=== PATIENT | female | born 1985 | race Caucasian/White ===

== ENCOUNTER 2018-05-07 06:23 | Day surgery (SDC) | payer BC ==
[~2018-05-07 06:23] MED LIST: Lactated Ringers 1,000 ML IV SCH; Sodium Chloride 0.9% 10 ML SDV IV PRN; Sodium Chloride 0.9% 10 ML Syringe FLUSH PRN; Sodium Chloride 0.9% 2.5 ML Syringe FLUSH PRN; ceFAZolin 2 GM in Premix Bag 1 BAG IV ONE
[2018-05-07] MEDS ORDERED: Propofol 200 MG/20 ML SDV ONE ×2 (07:21→09:55)
[2018-05-07] MEDS ORDERED: HYDROmorphone 2 MG/ML Syringe ONE (07:21)
[2018-05-07] MEDS ORDERED: fentaNYL 250 MCG/5 ML SDV ONE (07:21)
[2018-05-07] MEDS ORDERED: Midazolam 1 MG/ML 2 ML SDV ONE (07:21)
[2018-05-07] MEDS ORDERED: Scopolamine 1.5 MG Transdermal Patch TRDERM PRN (07:30)
--- NOTE | 2018-05-07 07:30 | PCM.PREANE ---
Preanesthetic Assessment - Anesthesia/Transfusion/Family Hx Anesthesia History: Prior Anesthesia Without Reaction Family History of Anesthesia Reaction: No Transfusion History: No Prior Transfusion(s) Intubation History: Unknown - Review of Systems General: No Symptoms Pulmonary: No Symptoms Cardiovascular: No Symptoms Gastrointestinal: Abdominal Pain Neurological: No Symptoms Other: Reports: None - Physical Assessment Height: 1.68 m Weight: 115.666 kg ASA Class: 2 Mental Status: Alert & Oriented x3 Airway Class: Mallampati = 2 Dentition: Reports: Normal Dentition Thyro-Mental Finger Breadths: 3 Mouth Opening Finger Breadths: 3 ROM/Head Extension: Full Lungs: Clear to Auscultation, Normal Respiratory Effort Cardiovascular: Regular Rate, Regular Rhythm - Lab Values: Laboratory Last Values Urine HCG, Qual NEGATIVE (NEGATIVE) 05/07/18 06:45 - Allergies Allergies/Adverse Reactions: Allergies Allergy/AdvReac Type Severity Reaction Status Date / Time almond Allergy tongue Verified 05/04/18 09:56 swells bee venom protein (honey bee) Allergy Swelling Verified 05/04/18 09:56 hydrocodone Allergy Nausea and Verified 05/07/18 07:25 Vomiting - Blood Blood Available: No - Anesthesia Plan Pre-Op Medication Ordered: None - Acknowledgements Anesthesia Type Planned: General Anesthesia Pt an Appropriate Candidate for the Planned Anesthesia: Yes Alternatives and Risks of Anesthesia Discussed w Pt/Guardian: Yes Pt/Guardian Understands and Agrees with Anesthesia Plan: Yes PreAnesthesia Questionnaire HEENT History: Reports: None, Other (See Below) Musculoskeletal History: Reports: Fracture, Other (See Below) Other Musculoskeletal History: hx fx lower back which causes lower back pain at times Neurological History: Reports: Migraines Endocrine/Metabolic History: Reports: Obesity/BMI 30+ (BMI 41.2) - Past Surgical History Head Surgeries/Procedures: Reports: None HEENT Surgical History: Reports: Oral Surgery, Tonsillectomy Other HEENT Surgeries/Procedures: wisdom teeth extraction - SUBSTANCE USE Smoking Status *Q: Never Smoker Recreational Drug Use History: No - HOME MEDS Home Medications: Home Meds Amitriptyline HCl 75 mg PO BEDTIME 04/02/18 [History] - CURRENT (IN HOUSE) MEDS Current Meds: Current Medications Lactated Ringer's (Ringers, Lactated) 1,000 mls @ 125 mls/hr IV ASDIRECTED BRITT Sodium Chloride (Saline Flush) 10 ml FLUSH ASDIRECTED PRN PRN Reason: Keep Vein Open Sodium Chloride (Saline Flush) 2.5 ml FLUSH ASDIRECTED PRN PRN Reason: Keep Vein Open Sodium Chloride (Normal Saline) 10 ml IV ASDIRECTED PRN PRN Reason: IV Use Discontinued Medications Fentanyl (Sublimaze) Confirm Administered Dose 250 mcg .ROUTE .STK-MED ONE Stop: 05/07/18 07:22 Hydromorphone HCl (Dilaudid) Confirm Administered Dose 2 mg .ROUTE .STK-MED ONE Stop: 05/07/18 07:22 Cefazolin Sodium/Dextrose 2 gm (/ Premix) 50 mls @ 100 mls/hr IV ONETIME ONE Stop: 04/06/18 11:33 Lactated Ringer's (Ringers, Lactated) 1,000 mls @ 125 mls/hr IV ASDIRECTED BRITT Cefazolin Sodium/Dextrose 2 gm (/ Premix) 50 mls @ 100 mls/hr IV ONETIME ONE Stop: 05/06/18 13:19 Midazolam HCl (Versed 1 Mg/Ml) Confirm Administered Dose 2 mg .ROUTE .STK-MED ONE Stop: 05/07/18 07:22 Propofol (Diprivan 20 Ml) Confirm Administered Dose 200 mg .ROUTE .STK-MED ONE Stop: 05/07/18 07:22 Sodium Chloride (Saline Flush) 10 ml FLUSH ASDIRECTED PRN PRN Reason: Keep Vein Open Sodium Chloride (Saline Flush) 2.5 ml FLUSH ASDIRECTED PRN PRN Reason: Keep Vein Open
[2018-05-07] MEDS ORDERED: Bupivacaine 0.5% 30 ML SDV ONE (07:40)
[2018-05-07] MEDS ORDERED: ePHEDrine 50 MG/ML SDV ONE (08:45)
[2018-05-07] MEDS ORDERED: Glycopyrrolate 0.2 MG/ML SDV ONE ×2 (08:45→09:40)
[2018-05-07] MEDS ORDERED: Neostigmine Methylsulfate 1 MG/ML 5 ML Syringe ONE (08:45)
[2018-05-07] MEDS ORDERED: Sodium Chloride 0.9% 20 ML ONE (08:46)
[2018-05-07] MEDS ORDERED: ceFAZolin/Dextrose,Iso-Osmotic 2 GM/50 ML Duplex Bag IV ONE (09:20)
[2018-05-07] MEDS ORDERED: Ondansetron 4 MG/2 ML SDV ONE (09:47)
[2018-05-07] MEDS ORDERED: fentaNYL 100 MCG/2 ML SDV ONE (10:02)
[2018-05-07] MEDS ORDERED: Ketorolac 30 MG/ML SDV ONE (10:20)
[2018-05-07] MEDS ORDERED: Acetaminophen/oxyCODONE 325-5 MG Tab PO PRN (10:22)
--- NOTE | 2018-05-07 10:23 | PCM.OPNOTE ---
- General Post-Op/Procedure Note Date of Surgery/Procedure: 05/07/18 Operative Procedure(s): cholecystectomy Findings: gallbladder containing gallstones with omental adhesions Pre Op Diagnosis: symptomatic cholelithiasis Post-Op Diagnosis: symptomatic cholelithiasis Anesthesia Technique: General ET Tube Primary Surgeon: Elmira Aguilar Secondary Surgeon: Kathie Taveras Fluid Replacement, Intraop: 1,500 Output, Urine Amount: 150 EBL in mLs: 10 Condition: Good
[2018-05-07] MEDS ORDERED: fentaNYL 100 MCG/2 ML SDV IVPUSH PRN (10:39)
--- NOTE | 2018-05-07 14:09 | PCM48HPAN ---
Post Anesthesia Note - EVALUATION WITHIN 48HRS OF ANESTHETIC Vital Signs in Normal Range: Yes Patient Participated in Evaluation: Yes Respiratory Function Stable: Yes Airway Patent: Yes Cardiovascular Function Stable: Yes Hydration Status Stable: Yes Pain Control Satisfactory: Yes Nausea and Vomiting Control Satisfactory: Yes Mental Status Recovered: Yes Resp Rate: 12 - COMMENTS/OBSERVATIONS Free Text/Narrative:: no anesthesia problems
--- NOTE | 2018-05-07 14:30 | OR ---
SURGEON: SPENCER VERMA MD DATE OF PROCEDURE: 05/07/2018 PREOPERATIVE DIAGNOSIS: Symptomatic cholelithiasis. POSTOPERATIVE DIAGNOSIS: Symptomatic cholelithiasis. PROCEDURE PERFORMED: Laparoscopic cholecystectomy. SCHOOL BUS AIDE: NENA Bolanos student. ANESTHESIA: General endotracheal anesthesia. FLUIDS: 1500 mL of crystalloid. ESTIMATED BLOOD LOSS: 10 mL. URINE OUTPUT: 150 mL. FINDINGS: Enlarged gallbladder containing stones. Omental and duodenal adhesions to the body of the gallbladder. Slightly anterior cystic artery. COMPLICATIONS: None. INDICATIONS: The patient is a 32-year-old female with symptomatic cholelithiasis. I explained the need for a laparoscopic possible open cholecystectomy. I explained the procedure, the expected perioperative course, and the risks including bleeding, infection, damage to surrounding structures. The patient verbalized understanding and wishes to proceed. PROCEDURE IN DETAIL: The patient was brought to the endoscopy suite and placed on the OR table in supine position. A time-out was completed verifying the patient's name, age, date of , allergies, and procedure to be performed. General endotracheal anesthesia was induced. The left arm was tucked to the patient's side and a Fernando catheter was placed. The abdomen was prepped and draped in usual standard fashion. The supraumbilical midline was anesthetized with 0.5% Marcaine plain. An 11 blade was used to make a 2 cm incision along the supraumbilical midline. Cautery was used to dissect down the level of subcutaneous fat. I bluntly dissected down to the level of fascia. The fascia was elevated with Belle's and incised sharply with curved Johnson scissors. I then bluntly dissected down to the peritoneum. This was elevated with hemostats and incised sharply with Metzenbaum scissors. Entry into the abdomen was palpated. Stay sutures were placed on either side of the fascia and a 12 mm Charbel trocar was then placed in the belly. The abdomen was insufflated with carbon dioxide and a 5 mm 30-degree scope was inserted. I noted no damage to surrounding structures from my initial trocar placement. The patient was placed into reverse Trendelenburg position and airplaned slightly to the left. 5 mm trocars were placed under direct visualization in the following locations, one in the epigastric area, one in the right flank, and one 2 fingerbreadths below the right subcostal margin in the midclavicular line. The dome of the gallbladder was grasped with an atraumatic grasper and lifted cranially. There were adhesions along the body of the gallbladder to both omentum and the underlying duodenum. These were taken down with blunt dissection as well as hook cautery. Once these were safely swept away, I then identified my infundibulum. This was grasped with an atraumatic grasper. The patient's cystic artery appeared to lie more anterior than usual. I could see pulsating. I followed this up along the body of the gallbladder and it appeared to give off several branches to the organ itself. I saw no evidence of a large artery anywhere else along the more distal gallbladder. Using hook cautery and blunt dissection, I took down the peritoneal attachments around this artery as well as the cystic duct. I cleared away half of the cystic plate to ensure that I had adequately identified my anatomy. I did note the node of Calot right next to the artery and cystic duct. Photographs were taken once I achieve my critical view. I triply clipped the artery and ligated it. I doubly clipped the cystic duct and ligated it. The remainder of the gallbladder attachments to the cystic plate were taken down with electrocautery. The gallbladder was then placed in an EndoCatch bag and removed through the supraumbilical port site. I reinserted my Charbel trocar and inspected my operative field. There appeared to be no evidence of bile leakage and the area was hemostatic. I irrigated the abdomen with 500 mL of normal saline and suctioned this out. The 5 mm trocars were removed under direct visualization. The abdomen allowed to desufflate. Charbel trocar was removed. I closed the fascia at the supraumbilical port site using [id number] Vicryl sutures. The subcutaneous fat layer was closed with interrupted 3-0 Vicryl. The skin was closed with running 4-0 Monocryl stitch. The 5 mm trocar sites were closed with interrupted 4-0 Monocryl sutures. The Steri-Strips and sterile dressings were applied. The patient tolerated the procedure well and was taken to PACU in stable condition. GOSIA STEELE /[id number]
[2018-05-07 15:23] VITALS: BP 137/61
== END 2018-05-07 14:35 | disposition home or self-care (01) ==
LOC: MW.SDS 06:23
PROVIDERS: ATTEND Surgery
DX: K80.10 Calculus of gallbladder with chronic cholecystitis without obstruction (principal); E66.9 Obesity, unspecified; Z68.41 Body mass index [BMI] 40.0-44.9, adult; Z79.899 Other long term (current) drug therapy; Z91.030 Bee allergy status; Z91.018 Allergy to other foods
CPT/HCPCS: 47562; 81025; A9270; J0690; J1885; J2250; J2405; J2704; J3010; J3490; J7120; 88304; J1170